=== PATIENT | female | born 1955 | race Caucasian/White ===

== ENCOUNTER → 2016-05-30 | Outpatient (CLI) | payer OTHER ==
--- NOTE | 2016-05-30 10:41 | CR ---
EXAMINATION: Double contrast upper GI HISTORY: Gastroesophageal reflux COMPARISON: None TECHNIQUE: Standard double contrast upper GI was performed. FINDINGS: The patient swallowed barium without difficulty. The esophagus is normal in caliber withou t filling defect or stricture. Esophageal motility appears normal. No hiatal hernia is noted. Mild g astroesophageal reflux is present. The stomach appears normally distensible. No filling defect or ulceration. The rugal fold pattern is normal. The duodenal bulb and sweep appear normal. IMPRESSION: 1. Mild gastroesophageal reflux, otherwise unremarkable double contrast upper GI.
== END ==
LOC: MW.DI 08:42
PROVIDERS: ATTEND Surgery
DX: K21.9 Gastro-esophageal reflux disease without esophagitis (principal)
CPT/HCPCS: 74247; 74247-26

== ENCOUNTER → 2016-06-08 | Outpatient (CLI) | payer OTHER | END | disposition home or self-care (01) | LOC: MW.MNT 13:50 | PROVIDERS: ATTEND Surgery | DX: E66.09 Other obesity due to excess calories (principal); Z68.43 Body mass index [BMI] 50.0-59.9, adult | CPT/HCPCS: 97802 ==

== ENCOUNTER → 2016-06-22 | Outpatient (CLI) | payer OTHER ==
--- NOTE | 2016-06-22 14:04 | MY ---
EXAMINATION: Bilateral digital mammography utilizing CAD. HISTORY: Screening exam. Comparison is made to previous studies dated 11/20/2014, 05/16/2013. FINDINGS: Bilateral scattered fibroglandular densities. No suspicious calcifications, masses or architectural distortions. No pathologic appearing lymph nodes, no abnormal skin thickening or nipple inversion. CAD highlighted regions appear normal at this time. IMPRESSION: BI-RADS category I - negative mammogram. Continued screening according to ACR-ACS guidelines sugg ghislaine. THE FALSE-NEGATIVE RATE OF MAMMOGRAM IS APPROXIMATELY 10%. MANAGEMENT OF A PALPABLE ABNORMALITY MUST BE BASED UPON CLINICAL GROUNDS. SENSITIVITY FOR DETECTION OF ABNORMALITIES IN DENSE BREASTS IS LOW. NOTE: A letter will be sent to the patient regarding findings. -- LIZZ Yanes [phone] - FAX [phone]
== END ==
LOC: MW.MAM 08:54
PROVIDERS: ATTEND Obstetrics & Gynecology
DX: Z12.31 Encounter for screening mammogram for malignant neoplasm of breast (principal)
CPT/HCPCS: G0202; G0202-26

== ENCOUNTER → 2016-07-12 | Outpatient (CLI) | payer OTHER | LOC: MW.MNT 11:23 | PROVIDERS: ATTEND Surgery | DX: Z71.3 Dietary counseling and surveillance (principal); E66.09 Other obesity due to excess calories; Z68.43 Body mass index [BMI] 50.0-59.9, adult | CPT/HCPCS: 97802 ==

== ENCOUNTER 2020-06-22 11:45 | Day surgery (SDC) | payer OTHER ==
[~2020-06-22 11:45] MED LIST: Lactated Ringers 1,000 ML IV SCH; Sodium Chloride 0.9% 10 ML SDV IV PRN; Sodium Chloride 0.9% 10 ML Syringe FLUSH PRN; Sodium Chloride 0.9% 2.5 ML Syringe FLUSH PRN
[2020-06-22] MEDS ORDERED: Ondansetron 4 MG/2 ML SDV ONE (12:53)
[2020-06-22] MEDS ORDERED: fentaNYL 100 MCG/2 ML SDV ONE (12:54)
[2020-06-22] MEDS ORDERED: Propofol 200 MG/20 ML SDV ONE (12:54)
[2020-06-22] MEDS ORDERED: Midazolam 1 MG/ML 2 ML SDV ONE (12:54)
--- NOTE | 2020-06-22 12:54 | PCM.PREANE ---
Preanesthetic Assessment - Anesthesia/Transfusion/Family Hx Anesthesia History: Prior Anesthesia Without Reaction Family History of Anesthesia Reaction: No Transfusion History: No Prior Transfusion(s) - Review of Systems General: No Symptoms Pulmonary: No Symptoms Cardiovascular: No Symptoms Gastrointestinal: No Symptoms Neurological: No Symptoms Other: Reports: None - Physical Assessment NPO Status Date: 06/22/20 NPO Status Time: 00:01 Vital Signs: Last Vital Signs Temp 97.9 F 06/22/20 12:22 Pulse 57 L 06/22/20 12:22 Resp 16 06/22/20 12:22 BP 148/79 H 06/22/20 12:22 Pulse Ox 97 06/22/20 12:22 Height: 5 ft 2 in Weight: 181 lb ASA Class: 2 Mental Status: Alert & Oriented x3 Airway Class: Mallampati = 2 Dentition: Reports: Normal Dentition ROM/Head Extension: Full Lungs: Clear to Auscultation, Normal Respiratory Effort Cardiovascular: Regular Rate, Regular Rhythm - Allergies Allergies/Adverse Reactions: Allergies Allergy/AdvReac Type Severity Reaction Status Date / Time hydrochlorothiazide Allergy Cough Verified 06/22/20 12:23 milk Allergy Abdominal Verified 06/22/20 12:23 Cramps niacin Allergy Hives Verified 06/22/20 12:23 - Anesthesia Plan Pre-Op Medication Ordered: None - Acknowledgements Anesthesia Type Planned: General Anesthesia Pt an Appropriate Candidate for the Planned Anesthesia: Yes Alternatives and Risks of Anesthesia Discussed w Pt/Guardian: Yes Pt/Guardian Understands and Agrees with Anesthesia Plan: Yes Additional Comments: npo htn no cv problems [place]lin obesity bmi 33 hayfever par no questions fatigue PreAnesthesia Questionnaire HEENT History: Reports: Allergic Rhinitis Other HEENT History: wears glasses Cardiovascular History: Reports: Hypertension Other Cardiovascular History: states she sometimes feels "palpitations" but nothing has been documented Respiratory History: Reports: None Gastrointestinal History: Reports: GERD Genitourinary History: Reports: None NEUROPATHOLOGIST History: Reports: Musculoskeletal History: Reports: Arthritis Neurological History: Reports: None Psychiatric History: Reports: None Endocrine/Metabolic History: Reports: Hypothyroidism, Obesity/BMI 30+ Hematologic History: Reports: None Immunologic History: Reports: None Oncologic (Cancer) History: Reports: None Dermatologic History: Reports: None - Past Surgical History Head Surgeries/Procedures: Reports: None HEENT Surgical History: Reports: Adenoidectomy, Oral Surgery, Tonsillectomy Other HEENT Surgeries/Procedures: hx of root canal surgery Cardiovascular Surgical History: Reports: None Respiratory Surgical History: Reports: None GI Surgical History: Reports: Colonoscopy Female Surgical History: Reports: Breast Biopsy, Section Other Female Surgeries/Procedures: hx of 3 C-Sections Endocrine Surgical History: Reports: None Neurological Surgical History: Reports: None Musculoskeletal Surgical History: Reports: Carpal Tunnel Other Musculoskeletal Surgeries/Procedures:: bilateral Oncologic Surgical History: Reports: None Dermatological Surgical History: Reports: None - SUBSTANCE USE Tobacco Use Status *Q: Former Tobacco User Tobacco Use Within Last Twelve Months: No Recreational Drug Use History: No - HOME MEDS Home Medications: Home Meds Levothyroxine Sodium [Synthroid] 100 mcg PO DAILY 04/25/14 [History] Omeprazole [Prilosec] 20 mg PO BID 04/25/14 [History] atenoloL [Atenolol] 50 mg PO DAILY 04/25/14 [History] Calcium Carbonate [Calcium] 600 mg PO BID 11/30/14 [History] Fish Oil/[place]-3 Fatty Acids [Fish Oil 1,000 MG] 1,000 mg PO DAILY 11/30/14 [History] L.acidoph,Paracasei, B.lactis [Probiotic] 1 tab PO DAILY 11/30/14 [History] Magnesium Amino Acid Chelate [Magnesium] 400 mg PO DAILY 11/30/14 [History] Multivitamin [Multivitamins] 1 tab PO DAILY 11/30/14 [History] Biotin 10,000 mcg PO DAILY 06/16/20 [History] Cider Vinegar [Apple Cider Vinegar] 1 tab PO DAILY 06/16/20 [History] Collagen, Hydrolysate (Bovine) [Collagen Hydrolysate] 1 dose PO DAILY 06/16/20 [History] Cyanocobalamin (Vitamin B12) [Vitamin B12] 2,000 unit PO DAILY 06/16/20 [History] Fluticasone Propionate [Flonase Allergy Relief] 1 spray NASBOTH DAILY 06/16/20 [History] Loratadine [Claritin] 10 mg PO DAILY 06/16/20 [History] Zinc 50 mg PO DAILY 06/16/20 [History] polyethylene glycoL 3350 [MiraLAX] 17 gm PO DAILY 06/16/20 [History] - CURRENT (IN HOUSE) MEDS Current Meds: Current Medications Lactated Ringer's (Ringers, Lactated) 1,000 mls @ 125 mls/hr IV ASDIRECTED LEAH Sodium Chloride (Sodium Chloride 0.9% 10 Ml Syringe) 10 ml FLUSH ASDIRECTED PRN PRN Reason: Keep Vein Open Sodium Chloride (Sodium Chloride 0.9% 2.5 Ml Syringe) 2.5 ml FLUSH ASDIRECTED PRN PRN Reason: Keep Vein Open Sodium Chloride (Sodium Chloride 0.9% 10 Ml Syringe) 10 ml FLUSH ASDIRECTED PRN PRN Reason: Keep Vein Open Sodium Chloride (Sodium Chloride 0.9% 2.5 Ml Syringe) 2.5 ml FLUSH ASDIRECTED PRN PRN Reason: Keep Vein Open Sodium Chloride (Sodium Chloride 0.9% 10 Ml Sdv) 10 ml IV ASDIRECTED PRN PRN Reason: IV Use
--- NOTE | 2020-06-22 14:10 | PCM.OPNOTE ---
- General Post-Op/Procedure Note Date of Surgery/Procedure: 06/22/20 Operative Procedure(s): Screening colonoscopy with polypectomy Findings: Diverticulosis throughout colon. Ascending colon polyps x 4 Pre Op Diagnosis: History of colon polyp Post-Op Diagnosis: Ascending colon polyp x 4, diverticulosis Anesthesia Technique: MAC Primary Surgeon: Josie Buckley Condition: Good
--- NOTE | 2020-06-22 14:19 | PCM.POSTAN ---
POST ANESTHESIA ASSESSMENT - VITAL SIGNS Vital Signs: Last Vital Signs Temp 36.6 C 06/22/20 12:22 Pulse 52 L 06/22/20 14:12 Resp 8 L 06/22/20 14:12 BP 113/61 06/22/20 14:12 Pulse Ox 99 06/22/20 14:12 - RESPIRATORY Respiratory Status: Respiratory Rate WNL - CARDIOVASCULAR CV Status: Pulse Rate WNL - GASTROINTESTINAL GI Status: No Symptoms - POST OP HYDRATION Hydration Status: Adequate & Stable
--- NOTE | 2020-06-22 15:04 | PCM48HPAN ---
Post Anesthesia Note - EVALUATION WITHIN 48HRS OF ANESTHETIC Vital Signs in Normal Range: Yes Patient Participated in Evaluation: Yes Respiratory Function Stable: Yes Airway Patent: Yes Cardiovascular Function Stable: Yes Hydration Status Stable: Yes Pain Control Satisfactory: Yes Nausea and Vomiting Control Satisfactory: Yes Mental Status Recovered: Yes Vital Signs: Last Vital Signs Temp 97.9 F 06/22/20 12:22 Pulse 52 L 06/22/20 14:12 Resp 8 L 06/22/20 14:12 BP 113/61 06/22/20 14:12 Pulse Ox 99 06/22/20 14:12
[2020-06-22 16:30] VITALS: BP 141/63; PULSE 55
--- NOTE | 2020-06-22 18:18 | OR ---
SURGEON: JOSIE BUCKLEY MD DATE OF PROCEDURE: 06/22/2020 PREOPERATIVE DIAGNOSIS: History of colon polyps. POSTOPERATIVE DIAGNOSES: 1. Diverticulosis. 2. Ascending colon polyps x4. PROCEDURE PERFORMED: Screening colonoscopy with polypectomy. PRIMARY SURGEON: Josie Buckley MD ANESTHESIA: MAC. INSTRUMENT USED: Olympus colonoscope. EXTENT OF EXAM: To the cecum. PREPARATION: Good. LIMITATIONS: None. INDICATIONS FOR EXAMINATION: The patient is a 64-year-old female with a history of colon polyps and is here for repeat colonoscopy. I explained the procedure, expected perioperative course, and risks. The patient verbalized understanding and wishes to proceed. PROCEDURE IN DETAIL: The patient was brought to the endoscopy suite and placed in the left lateral decubitus position. A time-out was completed verifying the patient's name, age, date of , allergies, and procedure to be performed. Monitored anesthesia care was induced, and continuous oxygen was provided via nasal cannula throughout the procedure. After adequate sedation was achieved, a digital rectal exam was performed. This exam was within normal limits. A well- lubricated colonoscope was inserted into the rectum and advanced under direct visualization to the level of the cecum. The cecum was identified by both visual and anatomic landmarks. A photograph taken of the cecal cap as well as with the scope retroflexed within the cecum. The scope was then fully withdrawn while examining the color, texture, anatomy, and integrity of the mucosa from the cecum to the anal canal. The patient was found to have 4 sessile ascending colon polyps. These were removed all in piecemeal fashion and sent to Pathology, labeled as ascending colon polyps. The patient was noted to have diverticulosis throughout the colon. The remainder of the exam was normal. The scope was brought into the rectum and retroflexed to allow visualization of the anal canal opening. This appeared normal, and a photograph was taken. The scope was then straightened out and fully withdrawn. The cecum to anus time was 22 minutes. The patient tolerated the procedure well and was transferred to the PACU in stable condition. ENDOSCOPIC DIAGNOSES: 1. Diverticulosis. 2. Ascending colon polyps x4. RECOMMENDATIONS: Follow up in clinic in 2 weeks. NADIA / BRIAN /[id number]
== END 2020-06-22 14:50 | disposition home or self-care (01) ==
LOC: MW.SDS 11:45
PROVIDERS: ATTEND Surgery
DX: D12.2 Benign neoplasm of ascending colon (principal); K57.30 Diverticulosis of large intestine without perforation or abscess without bleeding; I10 Essential (primary) hypertension; E78.5 Hyperlipidemia, unspecified; E03.9 Hypothyroidism, unspecified; E66.9 Obesity, unspecified; Z68.33 Body mass index [BMI] 33.0-33.9, adult; Z88.8 Allergy status to other drugs, medicaments and biological substances; Z91.011 Allergy to milk products; Z79.899 Other long term (current) drug therapy; Z87.891 Personal history of nicotine dependence; Z86.010 Personal history of colon polyps; Z98.890 Other specified postprocedural states
CPT/HCPCS: 45380; 88305; J2250; J2405; J2704; J3010; 00812

== ENCOUNTER 2024-08-21 08:47 | Emergency (ER) | payer MEDICARE, BC ==
[2024-08-21] MEDS ORDERED: Sodium Chloride 0.9% 10 ML Syringe FLUSH PRN (08:59)
[2024-08-21] MEDS ORDERED: Sodium Chloride 0.9% 2.5 ML Syringe FLUSH PRN (08:59)
[2024-08-21] MEDS ORDERED: Sodium Chloride 0.9% 20 ML SDV IV PRN (08:59)
[2024-08-21 09:06] LABS: BASOPHILS ABSOLUTE AUTO 0.04 K/uL (0.00-0.20); BASOPHILS PERCENT AUTO 0.5 % (0.0-1.0); EOSINOPHILS PERCENT AUTO 1.2 % (0.0-6.0); HEMATOCRIT 38.5 % (37.0-47.0); HEMOGLOBIN 12.1 g/dL (12.0-16.0); IMMATURE GRAN ABSOLUTE AUTO 0.02 K/uL (0.00-0.05); IMMATURE GRAN PERCENT AUTO 0.2 % (0.0-0.4); LYMPHOCYTES ABSOLUTE AUTO 1.58 K/uL (1.00-4.80); LYMPHOCYTES PERCENT AUTO 18.8 % (24.0-44.0); MEAN CORPUSCULAR HEMOGLOBIN 26.7 pg (28.0-32.0); MEAN CORPUSCULAR HGB CONC 31.4 g/dL (32.0-36.0); MEAN CORPUSCULAR VOLUME 84.8 fL (83.0-99.0); MEAN PLATELET VOLUME 9.4 fL (9.4-12.3); MONOCYTES ABSOLUTE AUTO 0.59 K/uL (0.00-0.80); NEUTROPHILS ABSOLUTE AUTO 6.09 K/uL (1.80-7.70); NEUTROPHILS PERCENT AUTO 72.3 % (41.0-71.0); PLATELET COUNT,PLT 301 K/uL (150-400); RED BLOOD CELL COUNT 4.54 M/uL (4.10-5.30); WHITE BLOOD CELL COUNT,WBC 8.42 K/uL (3.9-11.3)
[2024-08-21] MEDS: Aspirin 81 MG Tab.Chew PO ONE (09:07)
[2024-08-21 09:22] LABS: INR 0.98 (0.86-1.11); PTT,PARTIAL THROMBOPLSTIN TIME 26.2 SEC (23.9-30.7)
[2024-08-21 09:43] LABS: A/G RATIO 1.2 (0.9-1.6); ALANINE AMINOTRANSFERASE,ALT 20 IU/L (14-63); ALBUMIN 3.5 g/dL (3.4-5.0); ALKALINE PHOSPHATASE 51 U/L (46-116); ASPARTATE AMNIOTRANSFERASE,AST 18 IU/L (15-37); BILIRUBIN TOTAL 0.5 mg/dL (0.2-1.0); BLOOD UREA NITROGEN,BUN 22 mg/dL (7.0-18.0); CALCIUM 9.2 mg/dL (8.5-10.1); CARBON DIOXIDE,CO2 30.1 mmol/L (21.0-32.0); CHLORIDE,CL 105 mmol/L (98-107); EST CRCL DRUG DOSING (CG) 43.77 mL/min; GLUCOSE RANDOM 116 mg/dL (74-106); LIPASE 46 U/L (16-77); MAGNESIUM 2.2 mg/dL (1.8-2.4); PRO B-TYPE NATRIUR PEPT,BNPPRO 31 pg/mL (0-125); PROTEIN TOTAL,TP 6.5 g/dL (6.4-8.2); SODIUM,NA 140 mmol/L (136-145)
[2024-08-21 09:48] LABS: ESTIMATED GFR 62 mL/min (>60)
[2024-08-21 09:52] LABS: LACTIC ACID 0.9 mmol/L (0.4-2.0)
[2024-08-21] MEDS: Alum Hydrox/Mag Hydrox/Simeth 15 ML, Lidocaine 2% 5 ML PO ONE (11:25)
[2024-08-21] MEDS: Iopamidol 755 MG/ML 500 ML Multipack Bottle IVPUSH STA (13:15)
[2024-08-21 14:12] VITALS: BP 134/76; PULSE 74
== END 2024-08-21 14:11 | disposition home or self-care (01) ==
LOC: MW.ED 08:47
DX: R07.9 Chest pain, unspecified (principal); Z91.011 Allergy to milk products; Z91.048 Other nonmedicinal substance allergy status; Z79.890 Hormone replacement therapy; Z79.899 Other long term (current) drug therapy
CPT/HCPCS: 36415; 71045; 71275; 80053; 83605; 83690; 83735; 83880; 84484; 85025; 85379; 85610; 85730; 93005; 99285; A9270; Q9967; 99283